=== PATIENT | female | born 1995 | race Hispanic/Latino ===

== ENCOUNTER 2018-04-17 16:59 | Emergency (ER) | payer OTHER ==
[2018-04-17] MEDS ORDERED: MAG HYDROX/AL HYDROX/SIMETH ES 30 ML SUSP UDCUP ONE (18:03)
[2018-04-17] MEDS ORDERED: ONDANSETRON ODT 4 MG TAB ONE (18:03)
[2018-04-17 18:11] LABS: APPEARANCE,URINE Clear (CLEAR); BILIRUBIN,URINE Negative (NEGATIVE); COLOR,URINE Yellow (YELLOW); GLUCOSE, URINE (UA) Negative (NEGATIVE); KETONES,URINE Negative (NEGATIVE); LEUKOCYTE ESTERASE ,URINE Small (NEGATIVE); NITRATE,URINE Negative (NEGATIVE); OCCULT BLOOD,URINE Negative (NEGATIVE); PH,URINE 6.5 (5.0-8.0); PROTEIN,URINE Negative (NEGATIVE)
[2018-04-17 18:13] LABS: HCG,QUAL RESULT NEGATIVE (NEGATIVE)
[2018-04-17 18:19] LABS: BASOPHILS % (AUTO) 0.3 % (0.0-5.0); EOSINOPHILS % (AUTO) 0.9 % (0.0-8.0); LYMPHOCYTES % (AUTO) 12.9 % (21.0-51.0); MEAN CORPUSCULAR HEMOGLOBIN 31.5 pg (27.0-33.0); MEAN CORPUSCULAR HGB CONC 33.4 g/dL (32.0-36.0); MEAN CORPUSCULAR VOLUME 94.3 fL (80-100); MONOCYTES % (AUTO) 6.4 % (3.0-13.0); NEUTROPHILS % (AUTO) 79.5 % (40.0-77.0); NUCLEATED RED BLOOD CELLS 0.1 % (0.0-0.19); PLATELET COUNT (AUTO) 210 K/uL (130-400); RED BLOOD CELL COUNT(AUTO) 4.03 MIL/uL (4.00-5.50); RED CELL DISTRIBUTION WIDTH 13.6 % (11.0-15.5); WHITE BLOOD COUNT (AUTO) 8.4 K/uL (4.8-10.8)
[2018-04-17 18:23] LABS: CREATININE 0.5 mg/dL (0.5-1.5); POTASSIUM 3.7 mmol/L (3.5-5.1)
[2018-04-17 18:27] LABS: ALBUMIN 3.8 g/dL (3.5-5.0); BILIRUBIN,TOTAL 0.3 mg/dL (0.2-1.0); TOTAL PROTEIN, SERUM 7.4 g/dL (6.0-8.3)
[2018-04-17] MEDS ORDERED: FAMOTIDINE 20MG TAB 20 MG TAB ONE (18:32)
[2018-04-17 19:59] LABS: BACTERIA,URINE Few /HPF (None Seen); MUCUS,URINE Few LPF (None Seen); RBC,URINE None Seen /HPF (0-1)
== END 2018-04-17 19:48 | disposition home or self-care (01) ==
LOC: EDH 16:59
DX: R10.13 Epigastric pain (principal); R11.0 Nausea
CPT/HCPCS: 36415; 80053; 81001; 81025; 83690; 85025

== ENCOUNTER 2018-05-01 01:08 | Emergency (ER) | payer OTHER ==
[2018-05-01] MEDS ORDERED: LIDOCAINE HCL-MPF 1% 2ML VIAL ONE (01:41)
[2018-05-01] MEDS ORDERED: CEFTRIAXONE SODIUM 1 GM ONE (01:41)
== END 2018-05-01 01:52 | disposition home or self-care (01) ==
LOC: EDH 01:08
DX: H60.12 Cellulitis of left external ear (principal)
CPT/HCPCS: 96372; 99283; J0696; J3490

== ENCOUNTER 2018-09-14 23:48 | Emergency (ER) | payer OTHER ==
[2018-09-15] MEDS ORDERED: ONDANSETRON 4 MG TABLET ONE (00:14)
[2018-09-15] MEDS ORDERED: DICYCLOMINE HCL 20 MG TAB ONE (00:15)
[2018-09-15] MEDS ORDERED: FAMOTIDINE 20MG TAB 20 MG TAB ONE (00:15)
[2018-09-15 00:34] LABS: BASOPHILS % (AUTO) 0.5 % (0.0-5.0); EOSINOPHILS % (AUTO) 1.7 % (0.0-8.0); HEMATOCRIT 36.9 % (36-48); LYMPHOCYTES % (AUTO) 16.5 % (21.0-51.0); MEAN CORPUSCULAR HEMOGLOBIN 31.8 pg (27.0-33.0); MEAN CORPUSCULAR HGB CONC 33.9 g/dL (32.0-36.0); MEAN CORPUSCULAR VOLUME 93.8 fL (80-100); MONOCYTES % (AUTO) 6.7 % (3.0-13.0); NEUTROPHILS % (AUTO) 74.6 % (40.0-77.0); PLATELET COUNT (AUTO) 280 K/uL (130-400); RED BLOOD CELL COUNT(AUTO) 3.93 MIL/uL (4.00-5.50); RED CELL DISTRIBUTION WIDTH 13.1 % (11.0-15.5); WHITE BLOOD COUNT (AUTO) 8.3 K/uL (4.8-10.8)
[2018-09-15 01:07] LABS: CREATININE 0.5 mg/dL (0.5-1.5); POTASSIUM 3.9 mmol/L (3.5-5.1)
[2018-09-15 01:18] LABS: ALBUMIN 3.7 g/dL (3.5-5.0); BILIRUBIN,TOTAL 0.2 mg/dL (0.2-1.0)
== END 2018-09-15 01:26 | disposition home or self-care (01) ==
LOC: EDH 23:48
DX: R11.2 Nausea with vomiting, unspecified (principal); R10.13 Epigastric pain; R19.7 Diarrhea, unspecified
CPT/HCPCS: 36415; 80053; 83690; 84702; 85025; 99284; Q0162

== ENCOUNTER 2019-02-22 16:19 | Emergency (ER) | payer SELFPAY ==
[2019-02-22] MEDS ORDERED: PREDNISONE 20 MG TABLET ONE (16:52)
[2019-02-22 17:01] LABS: APPEARANCE,URINE Clear (CLEAR); BILIRUBIN,URINE Negative (NEGATIVE); COLOR,URINE Yellow (YELLOW); GLUCOSE, URINE (UA) Negative (NEGATIVE); KETONES,URINE Negative (NEGATIVE); LEUKOCYTE ESTERASE ,URINE Trace (NEGATIVE); NITRATE,URINE Negative (NEGATIVE); OCCULT BLOOD,URINE Negative (NEGATIVE); PH,URINE 8.5 (5.0-8.0); PROTEIN,URINE Negative (NEGATIVE)
[2019-02-22 17:02] LABS: HCG,QUAL RESULT NEGATIVE (NEGATIVE)
[2019-02-22 17:09] LABS: RBC,URINE 0-1 /HPF (0-1)
[2019-02-22 17:10] LABS: BACTERIA,URINE Rare /HPF (None Seen); SQUAMOUS EPITHELIAL CELL,UR Rare /HPF (0-2)
[2019-02-22] MEDS ORDERED: SULFAMETHOX-TMP DS 800/160 TAB ONE (17:18)
[2019-02-22] MEDS ORDERED: PHENAZOPYRIDINE HCL 200 MG TABLET ONE (17:18)
== END 2019-02-22 17:32 | disposition home or self-care (01) ==
LOC: EDH 16:19
DX: B34.9 Viral infection, unspecified (principal); N39.0 Urinary tract infection, site not specified
CPT/HCPCS: 81001; 81025

== ENCOUNTER 2019-08-15 00:48 | Emergency (ER) | payer SELFPAY ==
[2019-08-15] MEDS ORDERED: DEXAMETHASONE SOD PHOSPHATE 10MG/ML 1ML VIAL ONE (01:41)
== END 2019-08-15 02:35 | disposition home or self-care (01) ==
LOC: EDH 00:48
DX: J20.8 Acute bronchitis due to other specified organisms (principal)
CPT/HCPCS: 96372; 99283; J1100